=== PATIENT | female | born 1970 | race Caucasian/White ===

== ENCOUNTER 2018-03-29 14:08 | Day surgery (SDC) | payer OTHER ==
[2018-03-29 14:44] VITALS: O2SAT 95
[2018-03-29] MEDS ORDERED: DEXAMETHASONE SOD PHOS PF 10 MG/ML SOL IJ ONE (14:55)
[2018-03-29] MEDS ORDERED: BUPIVACAINE HCL 0.25% MPF 30 ML SOL INFIL ONE (14:55)
[2018-03-29] MEDS ORDERED: MIDAZOLAM 2 MG/2 ML SOL ONE (14:59)
[2018-03-29] MEDS ORDERED: FENTANYL 100MCG/2ML SOL ONE (14:59)
[2018-03-29] MEDS ORDERED: SODIUM CHLORIDE 0.9% FLUSH 10 ML SOL IV ONE (15:07)
[2018-03-29 15:39] VITALS: PULSE 56; RESP 20; TEMP 97.6
[2018-03-29 16:25] VITALS: BP 120/75
== END 2018-03-29 15:58 | disposition home or self-care (01) | DRG 74 ==
LOC: SURG 14:08
PROVIDERS: ATTEND Nurse Anesthetist, Certified Registered
DX: M54.12 Radiculopathy, cervical region (principal)
CPT/HCPCS: J2250; J3010; J1100

== ENCOUNTER 2018-05-02 07:07 | Day surgery (SDC) | payer OTHER ==
[2018-05-02] MEDS ORDERED: LIDOCAINE HCL 1% MPF 30 SOL ONE (07:48)
[2018-05-02] MEDS ORDERED: BUPIVACAINE HCL 0.5% MPF 10 ML SOL ONE (07:48)
[2018-05-02 08:33] VITALS: BP 111/79; PULSE 66; RESP 18; TEMP 97.4; O2SAT 98
== END 2018-05-02 08:55 | disposition home or self-care (01) | DRG 554 ==
LOC: SURG 07:07
PROVIDERS: ATTEND Nurse Anesthetist, Certified Registered
DX: M12.88 Other specific arthropathies, not elsewhere classified, other specified site (principal)
CPT/HCPCS: J2001

== ENCOUNTER 2018-05-16 13:38 | Day surgery (SDC) | payer OTHER ==
[2018-05-16 14:09] VITALS: TEMP 97.9
[2018-05-16] MEDS ORDERED: LIDOCAINE HCL 1% MPF 30 SOL ONE (14:20)
[2018-05-16 14:45] VITALS: O2SAT 100
[2018-05-16 14:59] VITALS: BP 111/63; PULSE 66; RESP 20
== END 2018-05-16 15:09 | disposition home or self-care (01) | DRG 554 ==
LOC: SURG 13:38
PROVIDERS: ATTEND Nurse Anesthetist, Certified Registered
DX: M12.88 Other specific arthropathies, not elsewhere classified, other specified site (principal)
CPT/HCPCS: J2001

== ENCOUNTER 2018-06-28 07:07 | Day surgery (SDC) | payer OTHER ==
[2018-06-28] MEDS ORDERED: FENTANYL 100MCG/2ML SOL ONE (07:47)
[2018-06-28] MEDS ORDERED: BUPIVACAINE HCL 0.25% MPF 30 ML SOL INFIL ONE (07:48)
[2018-06-28] MEDS ORDERED: LIDOCAINE HCL 1% MPF 30 SOL ONE (07:48)
[2018-06-28] MEDS ORDERED: LIDOCAINE HCL 2% MPF 10 ML SOL ONE (07:48)
[2018-06-28] MEDS: MIDAZOLAM 2 MG/2 ML SOL ONE ×2 (08:02→08:39)
[2018-06-28] MEDS ORDERED: SODIUM CHLORIDE 0.9% FLUSH 10 ML SOL IV ONE ×2 (08:02→08:39)
[2018-06-28] MEDS: TRIAMCINOLONE ACETONIDE 40 MG/ML SUS ONE ×3 (08:26→08:47)
[2018-06-28 08:58] VITALS: RESP 16; TEMP 97.6
[2018-06-28 09:23] VITALS: BP 115/83; PULSE 61; O2SAT 99
== END 2018-06-28 09:27 | disposition home or self-care (01) | DRG 554 ==
LOC: SURG 07:07
PROVIDERS: ATTEND Nurse Anesthetist, Certified Registered
DX: M12.88 Other specific arthropathies, not elsewhere classified, other specified site (principal)
CPT/HCPCS: J2250; J3010; J2001; J3300